=== PATIENT | male | born 1975 | race American Indian/Alaskan Native ===

== ENCOUNTER 2024-09-07 09:30 | Outpatient (AMB) | payer OTHER, SELFPAY ==
[2024-09-07 10:04] VITALS: BP 142/94; PULSE 114; O2SAT 98; BMI 38.7
--- NOTE | 2024-09-07 10:04 | A.OFFVIS_ITS ---
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, not intractable, without status migrainosus, R47.01 - Aphasia, R51.9 - Headache, unspecified, Z87.820 - Personal history of traumatic brain injury EEG electroencephalogram 09/13/24 G43.409 - Hemiplegic migraine, not intractable, without status migrainosus, R47.01 - Aphasia, R51.9 - Headache, unspecified, Z87.820 - Personal history of traumatic brain injury RT PSG in-lab sleep study 09/13/24 G43.409 - Hemiplegic migraine, not intrac table, without status migrainosus, G47.33 - Obstructive sleep apnea (adult) (pediatric), R47.01 - Aphasia, Z68.36 - Body mass index [BMI] 36.0-36.9, adult, Z87.820 - Personal history of traumatic brain injury Medications: New zavegepant 10 mg/actuation (Zavzpret) 10 mg intranasal ONCE PRN 6 ea 6RF sapna lucrecia headache 28 days eptinezumab-jj (Vyepti) administer over 30 mins 100 mg IV [id number] 1 mL 3RF 90 days G43.E19 - Chronic migraine with aura, intractable, without status migrainosus Coding Level of Care Code New Pt Level 5 (88080) Diagnoses Chronic migraine with aura, intractable, without status migrainosus G43.E19 Worsening headaches R51.9 Hemiplegic migraine G43.409 Aphasia R47.01 Comment 75 minutes spent directly with patient, in review of outside records, care coordination
--- OUTSIDE RECORDS SUMMARY | 2024-09-07 10:08 | XMS_ITS | Data Portability ---
Author Organization [place] - [facility], [facility]- Address [address] [address] Care Team Providers Care Operations Research Engineer Name Role Phone FAUSTO SMITH Primary Care Provider FAUSTO SMITH Referring Provider KRISTINE GROSS Referring Provider [phone] JAMES SANDOVAL Neurologist Assessment No assessment recorded. Plan of Treatment Reminders Order Date Submit Date Provider Last Modified By Organization Details Last Modified Time Details Appointments None recorde d. Lab None recorde d. Referral physica l therapi st referra l 2020 021 [facility], [address], [place], [address], 08:57:13 Procedures None recorde d. Surgeries None recorde d. Imaging MRI, knee, w/o contras t - assess pr meniscu s tear 2021 022 [email or web address] Not available 2 10:03:01 XR, knee 2020 021 [email or web address] In-Office Order, Internal Use Only DO Not Attach Compendium DO Not Attach Compendium, Do Not Delete/merge, [id number] 09:05:40 XR, hip, unilate ral 2020 021 [email or web address] In-Office Order, Internal Use Only DO Not Attach Compendium DO Not Attach Compendium, Do Not Delete/merge, [id number] 09:05:40 Medication Orders meloxic am 15 mg tablet 2020 021 ssigman [id number], [address] [place] [address], [place], [address], 10:47:41 Patient TargetsNo targets recorded. Patient Instructions Encounter Date Encounter Id Patient Instructions Last Modified By Organization Details Last Modified Time 11/20/2020 [id number] At this time, we have recommended that he complete his neurologic evaluation and workup. We will see him back in six weeks time. Hopefully, he can resume physical therapy once he gets Neurology clearance for continued strengthening. [email or web address] Not available 11/21/2020 07:32:47 01/01/2021 [id number] note to return t o work/school - Patient is to remain out of work until further notice. Next evaluation is 02/12/2021 [email or web address] Not available 01/02/2021 10:26:54 At this time, he will continue with formal physical therapy. He is going to remain out of work due to his concussion issues and then follow up with us in six weeks time for clinical check for return to work as well. Not available 01/03/2021 05:04:03 01/29/2021 [id number] X-ray of the hip demonstrates slight gun sock deformity but not showing significant osteoarthritic change. X-ray of the knee demonstrates reasonable joint space preservation without significant arthritis. We did proceed with a cortisone shot today to provide him some relief given the significance of his pain. We will see him in two weeks time. If he is not improving, we may consider further imaging either of the hip or knee depending on the quality of his symptoms. [email or web address] Not available 01/30/2021 09:04:43 02/28/2021 [id number] note to return t o work/school - Patient can return to work with no restrictions on 03/01/2021. [email or web address] Not available 02/28/2021 10:22:47 We are going to release him to work without restriction now for the right shoulder, activity as tolerated. I will see him in two months time for routine clinical check just to ensure he is doing well. Not available 03/03/2021 12:52:39 05/02/2021 [id number] X-rays were reviewed from January of 2021 which are unremarkable. At this point given his persistent pain and discomfort and failure to respond to conservative measures with significant mechanical issues, we are going to recommend an MRI of the knee. We will see him back after for clinical check. [email or web address] Not available 05/05/2021 07:23:29 Reason for Referral Physical Therapist Referral for Full thickness rotator cuff tear Referring Physician: Darvin Goodson, Orthopedic Surgery, Encounter Date: 11/20/2020 Results Created Date Observation Date Name Description Value Unit Range Abnormal Flag Note LastModifiedBy Organization Detail LastModifiedTime 01/30/20 XR, knee No observ ation record ed. doleary In-Office Order Internal Use Only DO Not Attach Compendium DO Not Attach Compendium, Do Not Delete/merge, [id number] 01/29/2021 09:28:53 01/30/20 XR, hip, unila teral No observ ation record ed. doleary In-Office Order Internal Use Only DO Not Attach Compendium DO Not Attach Compendium, Do Not Delete/merge, [id number] 01/29/2021 09:42:06 Result Notes None recorded. Problems Name Problem SNOMED Code Status Onset Date Resolution Date Notes Provider Name and Address Organization Details Recorded Time Osteoarthri tis of shoulder region [id number] Etienne salamanca [facility] 10:44:07 Disorder of joint of shoulder region 318743784 Active Sherri salamanca [facility] 10:44:06 Disorder of shoulder 455706119 Active Sherri salamanca [facility] 10:44:06 Glenoid labrum detachment [id number] Etienne salamanca [facility] 10:44:06 Displacemen t of interverteb ral disc without myelopathy [id number] Etienne salamanca [facility] 10:44:06 Localized, primary osteoarthri tis of the shoulder region [id number] Etienne salamanca [place] - [facility] 10:44:06 Neck pain 48356895 Active Sherri Killgren null, [facility] 10:44:06 Traumatic arthropathy of the shoulder region 324212052 Active Sherri Killgren null, [facility] 10:44:06 Shoulder joint pain 302432141 Active Sherri Killgren null, [facility] 10:44:06 Headache 35532671 Active Kush Valencia MD [address] [place] [address], [phone], [facility] 5 20:28:51 Rib pain 691228795 Active Sherri Killgren null, [facility] 10:44:06 Pain in thoracic spine 187860309 Active Sherri Killgren null, [facility] 10:44:07 Thoracic back pain 568893499 Active Sherri Killgren null, [facility] 10:44:06 Segmental and somatic dysfunction 029025650 Active Sherri Killgren null, [facility] 1 10:44:06 Rectal hemorrhage 51332725 Active Sherri Killgren null, [facility] 1 10:44:06 Depressive disorder 25567064 Active nadine napolitan o null, [facility] 0 16:20:14 Kidney stone 80510720 Active nadine napolitan o null, [facility] 0 16:20:14 Asthma 046510539 Active nadine napolitan o null, [facility] 0 16:20:14 Diverticuli tis 208540220 Active nadine napolitan o null, [facility] 0 16:20:15 Myocardial infarction 92705604 Active nadine napolitan o null, [facility] 0 16:20:15 Seizure 66584040 Active Sherri Killgren null, [facility] 1 10:44:06 Sleep apnea 54839646 Active nadine napolitan o null, [facility] 0 16:20:15 Migraine 43051744 Active nadine messinaolitan o null, [facility] 0 16:20:15 Tobacco user 426179133 Active Sherri Zuniga null, [facility] 1 10:44:06 Snoring 45664236 Active nadine messinaolitan o null, [facility] 0 16:20:15 Irritable bowel syndrome with diarrhea 402684551 Active nadine messinaolitan o null, [facility] 0 16:20:15 Anxiety 56386009 Active Sherri Reidgren null, [facility] 1 10:44:07 Abdominal pain 34334339 Active nadine bankstan o [facility], [facility] 0 16:20:15 Hearing loss 91302706 Active Sherri Reidgren null, [facility] 1 10:44:06 Pain of right shoulder joint [id number] 9100 Active Sherri Reidgren null, [facility] 1 10:44:06 Low back pain 685855088 Active 2017 Sherri Reidgren null, [facility] 1 10:44:06 Pain in left lower limb 422747441 Active 2018 Sherri Reidgren null, [facility] 1 10:44:06 Sciatica 20074910 Active 2018 Sherri Reidgren null, [facility] 1 10:44:06 Skin sensation disturbance 56720664 Active 2018 Sherri Reidgren null, [facility] 1 10:44:06 Interverteb ral disc prolapse 31307977 Active 2018 Sherri Reidgren null, [facility] 1 10:44:06 Degeneratio n of lumbosacral interverteb ral disc 30709072 Active 2018 Sherri Reidgren null, [facility] 10:44:06 Sprain of wrist 85089044 Active 2018 Sherri Zuniga [facility] 10:44:06 Problem Notes None recorded. Procedures Surgical History Date Name Laterality Status Provider Name and Address Organization Details Recorded Time (SAS) Knee Cortisone Injection completed Darvin Goodson MD [address] [place], [address], [facility] 01/29/2021 09:46:46 021 (SAS) Subacromial Injection completed Darvin Goodson MD [address] [place], [address], [facility] 03/18/2020 08:29:54 020 Injection L/S Facet Joint (2nd level-Bilateral) completed Kush Valencia MD [address] [place], [address] 11/23/2019 21:06:45 020 Injection L/S Transforaminal DONYA (2nd Level) completed Kush Valencia MD [address] [place], [address], [facility] 11/09/2019 19:49:45 020 (SAS) Subacromial Injection completed Sabina Jay NP [address] [place], [address], [facility] 06/26/2019 13:16:39 019 Injection L/S Transforaminal DONYA (2nd Level) completed Kush Valencia MD [address] [place], [address], [facility] 06/02/2018 17:34:12 019 Injection L/S Transforaminal DONYA (2nd Level) completed Kush Valencia MD [address] [place], [address], [facility] 05/19/2018 17:25:56 018 -Glenohumeral Injection-Fluoros copy completed Kush Valencia MD [address] [place], [address], [facility] 04/20/2017 21:02:30 018 (SAS) Subacromial Injection completed rodri vasquezoney [facility] 03/29/2017 08:23:26 017 -Glenohumeral Injection-Fluoros copy completed Kush Valencia MD [address] [place], [address] 04/07/2016 12:15:10 017 (SAS) Subacromial Injection completed Lucy Baljit [facility] 02/19/2016 09:24:23 015 -Injection C-Facet Joint (Two Levels) completed Kush Valencia MD [address] [place], [address] 09/11/2014 12:09:55 015 -Injection C-Facet Joint (Two Levels) completed Kush Valencia MD [address] [place], [address] 08/28/2014 12:19:52 009 Yvrose arthrs srg decompression completed Not Available [facility] 02/19/2011 02:37:16 Abdominal Surgery completed clemente forte [facility] 04/21/2017 11:32:27 Orthopaedic Surgery completed clemente forte [facility] 04/21/2017 11:32:56 Neck Surgery completed clemente forte [facility] 04/21/2017 11:33:19 Imaging Results None recorded. Procedure Notes None recorded. Medical Equipment None Reported. Allergies Allergen ID Allergen Name Allergen Category Reaction Reaction Severity Criticality Documentation Date Start Date Code Code System Note Provider Name and Address Organization Details Recorded Time 188078 codeine medicatio n Not available Not available Not available 07/19/2014 2670 RxNorm Sherri salamanca, [facility] 1 13:03:13 665465 Elavil medicatio n Not available Not available Not available 07/23/2014 68288 RxNorm Sherri salamanca [facility] 1 13:03:13 536879 tramadol medicatio n Not available Not available Not available 04/21/2017 33407 RxNorm Sherri Killgren null, [facility] 1 13:03:13 103339 gabapenti n medicatio n hallucina tions Not available Not available 01/31/2020 96383 RxNorm Sherri Killgren null, [facility] 1 13:03:13 330679 amitripty line medicatio n Not available Not available Not available 01/31/2020 704 RxNorm Sherri Killgren null, [facility] 1 13:03:13 410551 cyclobenz aprine hydrochlo ride medicatio n Not available Not available Not available 04/15/2020 05132 RxNorm Sherri Killgren null, [facility] 1 13:03:13 099525 maprotili ne medicatio n Not available Not available Not available 04/15/2020 6646 RxNorm Sherri Killgren null, [facility] 1 13:03:13 299124 SARS-COV- 2 (COVID-19 ) vaccine, vector - Ad26 medicatio n Not available Not available Not available 04/15/2020 40802 30 RxNorm Sherri Killgren null, [facility] 1 13:03:13 388163 metoclopr amide Not available Not available Not available Not available 08/28/2020 6915 RxNorm Sherri Killgren null, [facility] 1 10:43:55 830830 cyclobenz aprine medicatio n Not available Not available Not available 08/28/2020 49203 RxNorm Sherri Killgren null, [facility] 1 10:43:55 Medications Name Sig Start Date Stop Date Status Note LastModified by Organization Details LastModified Time verapamil ER (SR) 120 mg tablet,exte nded release TAKE 1 TABLET BY MOUTH EVERY DAY active Not Available Not Available No t Available celecoxib 200 mg capsule 04/21 completed Not Available Not Available Not Available cyclobenzap rine 10 mg tablet 04/21 completed Not Available Not Available Not Available prednisone 10 mg tablet take 4 tablets by mouth once daily for 3 days then take 3 tablets.. . (REFER TO PRESCRIPT ION NOTES). 04/21 completed Not Available Not Available Not Available doxycycline hyclate 100 mg capsule TAKE 1 CAPSULE BY MOUTH TWICE A DAY FOR 10 DAYS 10/08 completed Not Available Not Available Not Available atorvastati n 20 mg tablet TAKE 1 TABLET BY MOUTH EVERY DAY active Not Available Not Available No t Available Carafate 100 mg/mL oral suspension 04/21 completed Not Available Not Available Not Available verapamil 40 mg tablet 04/15 completed Not Available Not Available Not Available atorvastati n 10 mg tablet 03/18 completed Not Available Not Available Not Available azithromyci n 250 mg tablet TAKE 2 TABLETS BY MOUTH TODAY, THEN TAKE 1 TABLET DAILY FOR 4 DAYS 10/08 completed Not Available Not Available Not Available ibuprofen 800 mg tablet 04/21 completed Not Available Not Available Not Available Lidocaine Viscous 2 % mucosal solution 04/15 completed Not Available Not Available Not Available tizanidine 4 mg tablet 04/21 completed Not Available Not Available Not Available benzonatate 200 mg capsule active Not Available Not Available Not Available sumatriptan 100 mg tablet 04/21 completed Not Available Not Available Not Available hydrocodone 5 mg-acetamin ophen 325 mg tablet 1-2 tabs By mouth every 8 hours as needed Pain, Severe. Partial fill upon request. Refills: 0. active Not Available Not Available No t Available meloxicam 15 mg tablet Take 1 tablet every day by oral route with meals for 30 days. 2020 active Not Available Not Available Not Avai lable ondansetron HCl 4 mg tablet 04/21 completed Not Available Not Available Not Available famotidine 40 mg tablet 04/15 completed Not Available Not Available Not Available prednisone 20 mg tablet TAKE 2 TABLETS BY MOUTH DAILY FOR 3 DAYS WITH FOOD OR MILK active Not Available Not Available No t Available verapamil ER (SR) 180 mg tablet,exte nded release 04/15 completed Not Available Not Available Not Available sumatriptan 50 mg tablet 04/21 completed Not Available Not Available Not Available amlodipine 5 mg tablet TAKE 1 TABLET BY MOUTH EVERY DAY active Not Available Not Available No t Available divalproex 500 mg tablet,ricardo yed release 04/21 completed Not Available Not Available Not Available ciprofloxac in 500 mg tablet 04/15 completed Not Available Not Available Not Available sulfamethox azole 800 mg-trimetho prim 160 mg tablet active Not Available Not Available Not Available triamcinolo ne acetonide 0.1 % topical cream 04/15 completed Not Available Not Available Not Available zolmitripta n 5 mg tablet 5 mg by oral route. 10/08 completed Not Available Not Available Not Available butalbital- acetaminoph en-caffeine 50 mg-325 mg-40 mg tablet 04/21 completed Not Available Not Available Not Available ondansetron 8 mg disintegrat ing tablet 04/15 completed Not Available Not Available Not Available lamotrigine 25 mg tablet TAKE 1 TABLET BY MOUTH DAILY FOR 2 WEEKS THEN INCREASE TO 2 TABLETS DAILY active Not Available Not Available No t Available oxycodone-a cetaminophe n 5 mg-325 mg tablet 04/21 completed Not Available Not Available Not Available amoxicillin 875 mg tablet 04/15 completed Not Available Not Available Not Available famotidine 20 mg tablet take 1 tablet by mouth twice a day for 7 days 04/21 completed Not Available Not Available Not Available alosetron 1 mg tablet TAKE 1 TABLET BY MOUTH TWICE A DAY DIRECTED FOR 90 DAYS active Not Available Not Available No t Available tamsulosin 0.4 mg capsule 04/15 completed Not Available Not Available Not Available dicyclomine 20 mg tablet 04/21 completed Not Available Not Available Not Available meclizine 25 mg tablet TAKE 1 TABLET BY MOUTH 3 TIMES A DAY NEEDED FOR DIZZINESS active Not Available Not Available No t Available diazepam 2 mg tablet TK 2 T PO BID PRF MUSCLE SPASM 04/21 completed Not Available Not Available Not Available sulfacetami de sodium 10 % eye drops 04/21 completed Not Available Not Available Not Available benzonatate 100 mg capsule 04/15 completed Not Available Not Available Not Available doxycycline monohydrate 100 mg capsule 04/15 completed Not Available Not Available Not Available hydrocodone 7.5 mg-acetamin ophen 325 mg tablet 04/21 completed Not Available Not Available Not Available cephalexin 500 mg capsule 04/15 completed Not Available Not Available Not Available erythromyci n 5 mg/gram (0.5 %) eye ointment active Not Available Not Available Not Available dexamethaso ne 4 mg tablet 04/15 completed Not Available Not Available Not Available prednisone 50 mg tablet 06/21 completed Not Available Not Available Not Available losartan 25 mg tablet active Not Available Not Available No t Available indomethaci n 25 mg capsule TAKE 1 CAPSULE BY MOUTH 3X/DAY W/ FOOD X3 DAYS, 2 CAPS 3X/DAY FOR 3 DAYS, 3 CAPS 3X/DAY FOR 3 DAYS active Not Available Not Available No t Available gabapentin 300 mg capsule 04/21 completed Not Available Not Available Not Available omeprazole 20 mg capsule,del ayed release TAKE 1 CAPSULE BY MOUTH 30 MINUTES BEFORE MORNING MEAL active Not Available Not Available No t Available Banophen 25 mg capsule 06/21 completed Not Available Not Available Not Available budesonide 0.5 mg/2 mL suspension for nebulizatio n active Not Available Not Available Not Available diclofenac sodium 75 mg tablet,ricardo yed release take 1 tablet by mouth twice a day 04/21 completed Not Available Not Available Not Available folic acid 1 mg tablet TAKE 1 TABLET BY MOUTH EVERY DAY active Not Available Not Available No t Available zolpidem 5 mg tablet 04/21 completed Not Available Not Available Not Available ergocalcife rol (vitamin D2) 1,250 mcg (50,000 unit) capsule 04/21 completed Not Available Not Available Not Available azelastine 137 mcg (0.1 %) nasal spray USE 2 SPRAYS INTO EACH NOSTRIL TWICE A DAY active Not Available Not Available No t Available epinephrine 0.3 mg/0.3 mL injection, auto-inject or INJCT 0.3 MG IM ONCE,MAY REPEAT IF NECESSARY AND CALL 911 active Not Available Not Available No t Available ibuprofen 600 mg tablet 12/24 completed Not Available Not Available Not Available oxycodone-a cetaminophe n 7.5 mg-325 mg tablet 04/21 completed Not Available Not Available Not Available levofloxaci n 750 mg tablet TAKE 1 TABLET BY MOUTH EVERY 24 HOURS FOR 3 DAYS active Not Available Not Available No t Available methylpredn isolone 4 mg tablets in a dose pack TAKE 6 TABLETS ON DAY 1 DIRECTED ON PACKAGE AND DECREASE BY 1 TAB EACH DAY FOR A TOTAL OF 6 DAYS active Not Available Not Available No t Available hydrocodone 10 mg-chlorphe niramine 8 mg/5 mL oral susp extend.rel 12hr take 5 millilite r by mouth every 12 hours if needed for cough 04/21 completed Not Available Not Available Not Available albuterol sulfate HFA 90 mcg/actuati on aerosol inhaler INHALE 2 PUFFS 4 TIMES A DAY active Not Available Not Available No t Available hydromorpho ne 4 mg tablet 04/21 completed Not Available Not Available Not Available ondansetron 4 mg disintegrat ing tablet active Not Available Not Available N ot Available fluticasone propionate 50 mcg/actuati on nasal spray,suspe nsion 10/08 completed Not Available Not Available Not Available naratriptan 2.5 mg tablet 04/21 completed Not Available Not Available Not Available dicyclomine 10 mg capsule 04/21 completed Not Available Not Available Not Available loratadine 10 mg tablet 06/21 completed Not Available Not Available Not Available naproxen 500 mg tablet 04/21 completed Not Available Not Available Not Available metoclopram jose guadalupe 10 mg tablet 04/21 completed Not Available Not Available Not Available amoxicillin 875 mg-potassiu m clavulanate 125 mg tablet 10/08 completed Not Available Not Available Not Available Mucinex 600 mg tablet, extended release 04/15 completed Not Available Not Available Not Available azithromyci n 500 mg tablet 04/21 completed Not Available Not Available Not Available cyclobenzap rine 5 mg tablet 04/15 completed Not Available Not Available Not Available alosetron 0.5 mg tablet 04/21 completed Not Available Not Available Not Available Flovent HFA 110 mcg/actuati on aerosol inhaler 04/21 completed Not Available Not Available Not Available tizanidine 2 mg capsule Take 1 capsule 3 times a day by oral route as needed for 30 days. 04/21 completed Not Available Not Available Not Available Lipitor 10 mg. 03/18 completed Not Available Not Available Not Available Vitamin D 04/15 completed Not Available Not Available Not Available hydrocodone 5 mg-acetamin ophen 300 mg tablet 04/21 completed Not Available Not Available Not Available diclofenac 1 % topical gel 04/15 completed Not Available Not Available Not Available Abstral 04/21 completed Not Available Not Available Not Available Fluvirin 6473-5059 45 mcg (15 mcg x 3)/0.5 mL intramuscul ar suspension INJECT 0.5 ML INTRAMUSC ULARLY DIRECTED. 04/21 completed Not Available Not Available Not Available Aimovig Autoinjecto r 70 mg/mL subcutaneou s auto-inject or INJECT 1ML SUBCUTANE OUSLY ONCE A MONTH active Not Available Not Available No t Available Emgality Pen 120 mg/mL subcutaneou s pen injector active Not Available Not Available Not Available Aimovig Autoinjecto r 140 mg/mL subcutaneou s auto-inject or active Not Available Not Available Not Available Ubrelvy 100 mg tablet TAKE 1 TABLET BY MOUTH EVERY DAY WITH THE ONSET OF MIGRAINE DIRECTED 10/08 completed Not Available Not Available Not Available [facility] ing tablet PL[facility] 1 TABLET ON THE TONGUE AND ALLOW TO DISSOLVE NEEDED ORALLY EVERY OTHER DAY active Not Available Not Available No t Available Afluria Qd 2019- (36 mos up)(PF)60 mcg (15 mcg x4)/0.5 mL IM syringe 04/15 completed Not Available Not Available Not Available Vitals Date Recorded Body temperature Provider Name a nd Address Organization Details Last Updated DateTime 02/28/2021 97.8 [degF] Darvin Goodson MD [address] [place] [address], [phone], [place] - [facility] 02/28/2021 08:29:12 Date Recorded Body height Body mass index (BMI) Body weight Provider Name and Address Organization Details Last Updated DateTime 02/28/2021 177.8 cm 39.5 kg/m2 572819.9 g Sherri Zuniga [place] [facility] 02/28/2021 08:16:12 Date Recorded Body temperature Provider Name a nd Address Organization Details Last Updated DateTime 05/02/2021 97.3 [degF] thyda noting [place] [facility] 05/02/2021 08:00:22 Date Recorded Body height Body mass index (BMI) Body weight Provider Name and Address Organization Details Last Updated DateTime 05/02/2021 177.8 cm 39.5 kg/m2 032281.9 g Sherri Zuniga [place] [facility] 05/02/2021 07:47:16 Date Recorded Body temperature Provider Name a nd Address Organization Details Last Updated DateTime 11/20/2020 97.2 [degF] Nadine Valverde [place] [facility] 11/20/2020 14:47:51 Date Recorded Body height Body mass index (BMI) Body weight Provider Name and Address Organization Details Last Updated DateTime 11/20/2020 177.8 cm 39.5 kg/m2 904117.9 g Sherri Killgren [place] [facility] 11/20/2020 14:34:22 Date Recorded Body height Body mass index (BMI) Body weight Provider Name and Address Organization Details Last Updated DateTime 01/01/2021 177.8 cm 39.5 kg/m2 279360.9 g Sherri Jeanettegren [facility] 01/01/2021 08:57:59 Date Recorded Body temperature Provider Name a nd Address Organization Details Last Updated DateTime 01/29/2021 97.1 [degF] mima TOBAR [place] [facility] 01/29/2021 09:25:19 Date Recorded Body height Body mass index (BMI) Body weight Provider Name and Address Organization Details Last Updated DateTime 01/29/2021 177.8 cm 39.5 kg/m2 182948.9 g Sherri Killgren [facility] 01/29/2021 09:20:45 Social History Question Answer Notes LastModified by Organizat ion Details LastModified Time Tobacco Smoking Status Former Smoker clemente salamanca [place] [facility] 04/21/2017 11:31:24 Auto Related Injury? No Information not available 10/09/2020 Which Of Your Hands Is Dominant? Right Information not available 10/09/2020 Live Alone Or With Others? With Others Information not available 10/09/2020 Marital Status Informatio n not available 10/09/2020 What Was The Date Of Your Most Recent Tobacco Screening? 05/18/2018 Information not available 10/09/2020 How Many Children Do You Have? 0 Information not available 03/18/2020 If Injured, Is Litigation Ongoing? No Information not available 10/09/2020 What Is Your Relationship Status? Information not available 07/17/2020 How Much Tobacco Do You Smoke? 1 PPW Information not available 07/19/2014 Work Related Injury? No Information not available 10/09/2020 Sex: Unknown Functional Status Question Answer Note LastModified by Organizat ion Details LastModified Time Do you use any illicit or recreational drugs? No Information not available 02/06/2021 Do you or have you ever used any other forms of tobacco or nicotine? No Information not available 02/06/2021 What is your level of alcohol consumption? None Information not available 02/06/2021 Do you or have you ever used smokeless tobacco? Never used smokeless tobacco Information not available 10/09/2020 Are you currently employed? 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 Never used electronic cigarettes Information not available 10/09/2020 Mental Status None recorded. Family History Relationship Description Onset Age of this Age Resolved Age Notes LastModified by Organization Details LastModified Time Unspecified Relation Malignant neoplastic disease abhat Not available 2014 13:16:58 Unspecified Relation Diabetes mellitus abhat Not available 2014 13:16:58 Unspecified Relation Heart disease abhat Not available 2014 13:16:58 Unspecified Relation Hypertensive disorder abhat Not available 2014 13:16:58 Unspecified Relation Osteoarthrit is abhat Not available 2014 13:16:58 Unspecified Relation Rheumatoid arthritis abhat Not available 2014 13:16:58 Medical History Condition Response HIV or AIDS N Coronary Artery Disease Y Gout N Migraines Y Thyroid Problems N Lung Disease N Depression Y Blood Clots N Pacemaker N Anemia N Ulcers N Heart Attack ([place]) Y Anxiety Disorder N Diabetes N Bleeding Disorder N Arthritis Y Seizures/Epilepsy N Tuberculosis N Cancer N Stroke N Asthma Y Leg or Foot Ulcers N Peripheral Vascular Disease N GERD/Reflux N Hepatitis N Liver Disease N Heart Disease Y Rheumatoid Arthritis N Pulmonary Embolism N Hypertension Y Osteoporosis N Kidney Disease N Past Encounters Encounter ID Performer Location Encounter Start Date Encounter Closed Date Diagnosis/Indication Diagnosis SNOMED-CT Code Diagnosis ICD10 Code Diagnosis Note [id number] Darvin Goodson MD [address] [address] 12/14/2008 09:47:30 12/14/2008 10:18:35 [id number] Darvin Goodson MD [address] [address] 01/18/2009 09:14:39 01/18/2009 10:41:26 [id number] Darvin Goodson MD [address] [address] 01/28/2009 09:45:24 01/28/2009 10:20:22 [id number] Darvin Goodson MD [address] [address] 02/06/2009 12:43:41 02/06/2009 12:43:49 [id number] Sabina Jay NP [address] [address] 02/05/2009 00:00:00 02/18/2011 03:30:43 [id number] Darvin Goodson MD [address] [address] 02/12/2009 09:49:50 02/12/2009 10:02:53 [id number] Darvin Goodson MD [address] [address] 03/04/2009 09:06:28 03/04/2009 09:34:14 [id number] Darvin Goodson MD [address] [address] 04/15/2009 08:55:37 04/15/2009 09:21:31 [id number] Darvin Goodson MD [address] [address] 05/20/2009 08:29:03 05/20/2009 08:43:26 [id number] Darvin Goodson MD [address] [address] 07/01/2009 08:18:02 07/01/2009 08:27:48 [id number] Darvin Goodson MD [address] [address] 08/05/2009 08:16:17 08/05/2009 08:43:28 [id number] [address] 09/09/2009 09:24:02 09/09/2009 10:08:01 [id number] Darvin Goodson MD [facility] [address] [place] [address] 09/09/2009 08:37:49 09/09/2009 08:51:20 [id number] Darvin Goodson MD [facility] [address] [place] [address] 09/27/2009 08:27:16 09/27/2009 08:53:17 [id number] MD CHARMAINE Pimentel [address] [place] [address] 07/19/2014 15:06:50 07/19/2014 16:04:44 Neck pain 43282264 Headache 94685613 Rib pain 570829702 Pain in th oracic spine 651401052 [id number] MD CHARMAINE Pimentel [address] [place] [address] 08/15/2014 15:33:30 08/15/2014 15:48:58 Neck pain 84018389 Headache 91731237 [id number] MD CHARMAINE Pimentel [address] [place] [address] 08/27/2014 09:04:05 08/27/2014 10:08:25 Headache 73210192 Neck pain 45555433 [id number] MD CHARMAINE Pimentel [address] [place] [address] 08/28/2014 11:31:40 08/28/2014 12:23:33 [id number] MD CHARMAINE Pimentel [address] [place] [address] 09/11/2014 11:58:03 09/11/2014 12:15:39 [id number] MD CHARMAINE Pimentel [address] [place] [address] 11/02/2014 13:48:54 11/02/2014 14:15:41 Pain in thoracic spine 999191992 Headache 74978087 Neck pain 99236803 [id number] MD CHARMAINE Pimentel [address] [place] [address] 11/22/2014 15:54:38 11/22/2014 16:22:09 Thoracic back pain 965009287 M54.6 Segmental and somatic dysfunction 077056976 M99.08 [id number] MD CHARMAINE Andrea [address] [place] [address] 11/20/2015 12:49:46 11/20/2015 13:29:59 Pain of shoulder region 68613051 M25.511 [id number] MD CHARMAINE Andrea [address] [place] [address] 12/04/2015 14:45:34 12/04/2015 15:10:34 Partial thickness rotator cuff tear 423216819 M75.101 [id number] MD CHARMAINE Andrea [address] [place] [address] 01/06/2016 14:46:39 01/06/2016 15:06:56 Partial thickness rotator cuff tear 054181648 M75.101 Pain of oulder region 92177689 M25.511 [id number] MD CHARMAINE Andrea [address] [place] [address] 02/19/2016 08:51:10 02/19/2016 09:44:35 Partial thickness rotator cuff tear 475056285 M75.101 [id number] MD CHARMAINE Andrea [address] [place] [address] 04/01/2016 09:05:03 04/01/2016 09:19:14 Partial thickness rotator cuff tear 256126032 M75.101 Glenoid labrum tear 2023 62075 S43.431A [id number] MD CHARMAINE Pimentel [address] [place] [address] 04/07/2016 10:57:35 04/07/2016 11:41:01 Shoulder joint pain 801229841 M25.519 [id number] MD CHARMAINE Andrea. Rubinafor d [address] [place] [address] 05/06/2016 08:06:30 05/06/2016 08:21:02 [id number] MD CHARMAINE Andrea [address] [place] [address] 06/17/2016 07:57:43 06/17/2016 08:17:32 Disorder of shoulder 238421139 M25.811 Shoulder joint pain 2679 20675 M25.519 [id number] [facility] [address] [place] [address] 07/29/2016 07:41:00 07/29/2016 08:11:19 Adhesive capsulitis of shoulder 819668653 M75.01 [id number] [facility] [address] [place] [address] 08/10/2016 08:12:55 08/10/2016 08:32:46 [id number] MD [facility] [address] [place] [address] 09/09/2016 09:17:49 09/09/2016 09:36:48 Rib pain 085035900 R07.81 [id number] [facility] [address] [place] [address] 10/12/2016 09:00:44 10/12/2016 09:10:34 Adhesive capsulitis of shoulder 751231856 M75.01 [id number] MD CHARMAINE Andrea d [address] [place] [address] 11/16/2016 07:39:03 11/16/2016 08:02:30 [id number] MD CHARMAINE Andrea d [address] [place] [address] 12/28/2016 08:11:24 12/28/2016 08:51:36 Partial thickness rotator cuff tear 169152956 M75.101 [id number] MD CHARMAINE Pimentel [address] [place] [address] 03/17/2017 08:28:46 03/17/2017 08:59:44 Low back pain 101795809 M54.5 Pain in th oracic spine 750698114 M54.6 [id number] MD CHARMAINE Pimentel [address] [place] [address] 03/24/2017 12:47:23 03/24/2017 13:15:30 Pain in thoracic spine 960251681 M54.6 Low back pain 534767037 M54.5 [id number] MD CHARMAINE Andrea [address] [place] [address] 03/29/2017 07:58:41 03/29/2017 08:17:21 Pain of shoulder region 35537918 M25.511 [id number] MD CHARMAINE Pimentel [address] [place] [address] 04/20/2017 14:56:39 04/20/2017 15:32:30 Pain of shoulder region 64490411 M25.511 [id number] MD CHARMAINE Andrea [address] [place] [address] 12/15/2017 13:16:12 12/15/2017 14:06:00 Knee pain 30031672 M25.569 M25.562 [id number] MD CHARMAINE Andrea [address] [place] [address] 12/22/2017 09:40:20 12/22/2017 09:55:43 Knee pain 48078634 M25.562 [id number] MD CHARMAINE Andrea [address] [place] [address] 01/19/2018 09:32:59 01/19/2018 09:49:43 [id number] MD CHARMAINE Andrea [address] [place] [address] 03/16/2018 08:41:03 03/16/2018 08:54:59 [id number] MD CHARMAINE Pimentel [address] [place] [address] 05/18/2018 14:12:54 05/18/2018 14:44:55 Low back pain 918096442 M54.5 Pain in le ft lower limb 949428851 M79.605 Sciatica 40086240 M54.31 Skin sensa tion disturbance 01278328 R20.8 Interverte bral disc prolapse 06240158 M51.27 Degenerati on of lumbosacral intervertebral disc 00087376 M51.37 [id number] MD CHARMAINE Pimentel [address] [place] [address] 05/19/2018 15:53:56 05/19/2018 16:43:47 Displacement of lumbar intervertebral disc without myelopathy 96405261 M51.26 [id number] MD CHARMAINE Pimentel [address] [place] [address] 06/02/2018 15:49:39 06/02/2018 16:20:54 Displacement of lumbar intervertebral disc without myelopathy 98060372 M51.26 [id number] MD CHARMAINE Werner [address] [place] [address] 12/26/2018 13:26:20 12/26/2018 14:12:06 Sprain of wrist 83914084 S63.592A [id number] MD CHARMAINE Werner [address] [place] [address] 01/09/2019 12:44:53 01/09/2019 13:15:47 Sprain of wrist 13443309 S63.592A [id number] MD CHARMAINE Andrea [address] [place] [address] 06/07/2019 11:13:13 06/07/2019 15:12:11 Pain of shoulder region 63972189 M25.759 [id number] MD CHARMAINE Andrea [address] [place] [address] 06/21/2019 10:39:24 06/21/2019 14:32:55 [id number] MD CHARMAINE Andrea [address] [place] [address] 06/26/2019 12:46:09 06/26/2019 13:30:41 Pain of right shoulder joint 3344082285 5388433 M25.511 Neck pain 32359270 M54.2 [id number] MD CHARMAINE Andrea [address] [place] [address] 07/12/2019 07:49:15 07/12/2019 09:01:49 Neck pain 51063092 M54.2 [id number] MD CHARMAINE Andrea [address] [place] [address] 07/26/2019 09:06:54 07/26/2019 14:18:10 Neck pain 37855409 M54.2 [id number] MD CHARMAINE Pimentel [address] [place] [address] 10/30/2019 15:45:01 10/31/2019 11:28:18 [id number] MD CHARMAINE Pimentel [address] [place] [address] 11/09/2019 15:51:26 11/09/2019 16:25:48 Displacement of lumbar intervertebral disc without myelopathy 69969026 M51.26 [id number] MD CHARMAINE Pimentel [address] [place] [address] 11/23/2019 16:06:28 11/23/2019 16:33:14 Lumbosacral spondylosis without myelopathy 91202783 M47.341 [id number] MD CHARMAINE Pimentel [address] [place] [address] 12/25/2019 15:43:50 12/25/2019 16:17:53 Osteoarthritis of lumbar spinal facet joint 042518467 M47.817 Low back pain 839914769 M54.5 Pain in th oracic spine 549598736 M54.17 [id number] MD CHARMAINE Pimentel [address] [place] [address] 01/31/2020 16:16:52 02/02/2020 14:32:53 Low back pain 936126702 M54.5 Osteoarthr itis of lumbar spinal facet joint 357468459 M47.817 Lumbosacra l radiculopathy 6910942 M54.17 [id number] MD [facility] [address] [place] [address] 03/13/2020 08:50:47 03/13/2020 09:12:01 Pain of right shoulder joint 2175352391 5722231 M25.831 [id number] MD [facility] [address] [place] [address] 03/18/2020 08:18:52 03/18/2020 08:42:38 Partial thickness rotator cuff tear 060662296 M75.032 [id number] MD CHARMAINE Andrea Kishan beebe [address] [place] [address] 04/15/2020 07:57:24 04/15/2020 08:18:28 Partial thickness rotator cuff tear 378718353 M75.550 [id number] MD CHARMAINE Andrea Kishan beebe [address] [place] [address] 05/24/2020 10:42:24 05/24/2020 10:57:06 Partial thickness rotator cuff tear 077056153 M75.605 [id number] MD [facility] [address] [place] [address] 06/21/2020 10:18:22 06/21/2020 10:34:18 Partial thickness rotator cuff tear 574678570 M75.056 [id number] MD CHARMAINE Andrea [address] [place] [address] 07/17/2020 10:38:47 07/17/2020 11:13:37 Partial thickness rotator cuff tear 964203127 M75.490 [id number] MD CHARMAINE Andrea d [address] [place] [address] 08/28/2020 10:42:04 08/28/2020 11:05:40 Full thickness rotator cuff tear 891309731 M75.461 [id number] MD CHARMAINE Andrea [address] [place] [address] 10/09/2020 13:00:44 10/09/2020 13:18:41 Full thickness rotator cuff tear 081448907 M75.059 [id number] MD CHARMAINE Anrdea [address] [place] [address] 11/20/2020 14:32:45 11/20/2020 15:13:28 Full thickness rotator cuff tear 681099670 M75.079 [id number] MD CHARMAINE Andrea [address] [place] [address] 01/01/2021 08:56:39 01/01/2021 09:28:55 Full thickness rotator cuff tear 585496569 M75.780 [id number] MD CHARMAINE Andrea Kishan beebe [address] [place] [address] 01/29/2021 09:04:46 01/29/2021 09:56:34 Pain of left knee joint 8043224327 52699 M25.045 [id number] MD CHARMAINE Andrea [address] [place] [address] 02/28/2021 08:07:54 02/28/2021 08:37:54 Full thickness rotator cuff tear 455365395 M75.608 [id number] MD CHARMAINE Andrea [address] [place] [address] 05/02/2021 07:44:02 05/02/2021 08:12:39 Pain of left knee joint 6078863168 63775 M25.562 Health Concerns Section Related Observation LastModified by Organization Detai ls LastModified Time None Recorded Concern Status LastModified by Organization Details LastModified Time None Recorded Advance Directives Directive None Recorded Payers Insurance Date Sequence Insurance Name Policy Number Policy Cat Covered Member ID Cat Member ID Guarantor Name 09/30/2013 1 [facility] [employer] PLAN (HMO) [id number] Joanne Kirkland [id number] Joanne Kirkland 06/18/2014 1 [facility] (PPO) Joanne Kirkland [id number] Joanne Kirkland 02/19/2016 1 [place] [id number] Joanne Kirkland [id number] Joanne Kirkland 09/23/2021 [facility] Saturnino Kirkland 09/23/2021 2 [place] [id number] Saturnino Kirkland [id number] Joanne Kirkland 09/26/2021 1 [employer] [id number] Saturnino Kirkland [id number] Joanne Kirkland Notes Date Note Type Note Provider Name and Address Organization Details Recorded Time 11/20/2020 text/html SAS ShoulderRepo rted by Patient SAS Shoulder FollowupReported by Patient We are seeing Saturnino today who presents in follow-up for his shoulder. He has had a concussion after a work related injury. He is under the monitoring of a neurologist at this point. He has been unable to continue with therapy at the moment. Darvin Goodson MD [address] [place], [address], [facility] 11/22/2020 12:40:23 01/01/2021 text/html SAS ShoulderRepo rted by Patient SAS Shoulder FollowupReported by Patient We are seeing Saturnino today who presents in follow-up for his rotator cuff repair and in addition for his concussion which has kept him out of work. He is followed by Neurology for that as well. He has finally gone back to physical therapy. Darvin Goodson MD [address] [place], [address], [facility] 01/06/2021 10:47:58 01/29/2021 text/html SAS Knee FollowupReported by Patient SAS KneeReported by Patient We are seeing Saturnino today. He presents with atypical knee pain which has been present now for about three weeks. Unsure of any one specific traumatic event or injury. Has pain radiating into the groin and using a cane for ambulation. Again, no specific traumatic event that he can recall. Darvin Goodson MD [address] [place], [address], [facility] 01/31/2021 13:04:31 02/28/2021 text/html SAS ShoulderRepo rted by Patient SAS Shoulder FollowupReported by Patient We are seeing Saturnino today who presents in follow-up for his shoulder. He had a cortisone shot at last visit for mechanical pain. He has done exceptionally well with that. Feels he is more or less back to normal. His right shoulder still gives him occasional intermittent pain and weakness, but he is functioning at a higher level with regards to that. He wants to resume work. Darvin Goodson MD [address] [place], [address], [facility] 03/06/2021 08:18:04 05/02/2021 text/html SAS ShoulderRepo rted by Patient CHRISTIAN Shoulder FollowupReported by Patient We are seeing Saturnino today in follow-up for his left knee. He is having more severe pain and discomfort. He had a cortisone shot previously which only gave him temporary relief. If anything, his symptoms are worse. It is a lot of kneeling at work but no one specific traumatic event or injury. Denies hip or back pain. His pain is localized into the knee. Darvin Goodson MD [address] [place], [address], [facility] 05/05/2021 16:01:38
--- OUTSIDE RECORDS SUMMARY | 2024-09-07 10:08 | XMS_ITS | Encounter Summary ---
Author Organization [facility] Address [address] [facility] [address] [place] [address] Care Team Providers Care Refinery Operator Helper Crude Unit Name Role Phone Judi Simms MD Primary Care Provider [phone] Judi Simms MD Unavailable [phone] Reason for Visit * Reason Comments Med Refill Encounter Details Date Type Department Care Team (Late st Contact Info) Description 02/08/[address] [address] Judi Simms MD [address] [place] [address] Mild persistent asthma without complication (Primary Dx); Migraine with aura and without status migrainosus, not intractable Social History Tobacco Use Types Packs/Day Years Used Date Smoking Tobacco: Former Cigarettes Q uit: 2002 Smokeless Tobacco: Never Alcohol Use Standard Drinks/Week Comments Not Currently 0 (1 standard drink = 0.6 oz pure alcohol) drinks 2 days/year to commemorate anniversaries Sex and Gender Information Value Date Recorded Sex Assigned at Male 12/26/2021 5:43 PM EST Legal Sex Male 11:02 AM EDT Gender Identity Male 08/25/2022 2:24 PM EDT Sexual Orientation Straight 08/25/2022 2: 24 PM EDT documented as of this encounter Plan of Treatment Upcoming Encounters Date Type Department Care Team (Late st Contact Info) Description 08/24/2025 1:45 PM EDT Office Visit [place] [address] [address] [facility] [address] [place] [address] Judi Simms MD [address] [address] documented as of this encounter Visit Diagnoses Diagnosis Mild persistent asthma without complication (Multi-HCC)- Primary Migraine with aura and without status migrainosus, not intractable documented in this encounter Care Teams Refinery Operator Helper Crude Unit Relationship Specialty Start Date End Date Judi Simms MD PCP - General 03/21/21 Judi Simms MD 03/21/21 documented as of this encounter
== END 2024-09-07 11:53 | disposition home or self-care (01) ==
LOC: HO.HSMS 09:30
PROVIDERS: Visit Provider Nurse Practitioner Family
DX: G43.E19 Chronic migraine with aura, intractable, without status migrainosus (principal); G43.409 Hemiplegic migraine, not intractable, without status migrainosus; R47.01 Aphasia
CPT/HCPCS: 99205

== ENCOUNTER → 2024-10-13 19:30 | Outpatient (REF) | payer OTHER, SELFPAY | LOC: HO.SL 19:30 | PROVIDERS: Visit Provider Nurse Practitioner Family | DX: Z13.89 Encounter for screening for other disorder (principal) ==

== ENCOUNTER → 2024-10-13 19:52 | Outpatient (BNV) | payer OTHER, SELFPAY | PROVIDERS: Visit Provider Psychiatry & Neurology Neurology | DX: G47.33 Obstructive sleep apnea (adult) (pediatric) (principal); G47.61 Periodic limb movement disorder | CPT/HCPCS: 95810 ==

== ENCOUNTER 2024-10-22 14:44 | Outpatient (REF) | payer OTHER, SELFPAY ==
--- NOTE | ~2024-10-22 | MR_ITS ---
EXAMINATION: MR BRAIN WITHOUT AND WITH CONTRAST CLINICAL INFORMATION: Headache COMPARISON: None available. TECHNIQUE: Multiplanar, multisequence MRI of the brain was obtained before and after the intravenous administration of 10.0 mL gadolinium based contrast without reported immediate complications.. FINDINGS: No restricted diffusion. No acute intracranial hemorrhage, mass effect, midline shift, hydrocephalus or herniation. Kirk-white matter differentiation is normal. No abnormal enhancement within the intra-axial or extra-axial compartment of the cranium. Posterior cranial fossa contents demonstrated no signal abnormality or masses. Flow-void signal within the main cerebral vessels is normal. Sellar/suprasellar region is normal. Craniocervical junction demonstrates normal position of the cerebellar tonsils. Small retention cyst, left maxillary sinus. Mild mucosal thickening in the ethmoid cells. MR/MR head/brain wo/w con IMPRESSION: No acute or structural brain abnormality. No enhancing lesion. Electronically signed by: Timur Barksdale MD 10/23/2024 08:45 AM EDT
--- NOTE | ~2024-10-22 | MR_ITS ---
EXAMINATION: MR VENOGRAM BRAIN WITH CONTRAST CLINICAL INFORMATION: Headache COMPARISON: None available. TECHNIQUE: MRV of the brain was obtained using routine sequences with contrast. Intravenous contrast: Gadolinium based 10.0 mL. No reported immediate complications. FINDINGS: Superior sagittal sinus, internal cerebral veins, vein of Randolph, straight sinus, torcula, transverse and sigmoid venous sinuses and internal jugular bulb demonstrated normal patency without intraluminal filling defects. MR/MR venography head wo/w con IMPRESSION: No main cerebral venous sinus thrombosis. Normal MRV brain. Electronically signed by: Timur Barksdale MD 10/23/2024 08:40 AM EDT
--- NOTE | ~2024-10-22 | MR_ITS ---
EXAMINATION: MR ANGIOGRAPHY BRAIN WITHOUT CONTRAST CLINICAL INFORMATION: Headache COMPARISON: None available. TECHNIQUE: Axial 3-D [id number]. Maximum intensity projections iqugmiut of [place]. FINDINGS: Anterior cerebral circulation: ICAs: No flow signal gap or abrupt cut off. ICA terminus demonstrated no flow signal irregularity. MCA's: No flow signal gap or abrupt cut off. Bifurcation/trifurcation demonstrated no flow signal irregularity. ACAs: No flow signal gap or abrupt cut off. Anterior communicating artery flow signal is present without flow signal irregularity. Ophthalmic arteries flow signal is present without gross irregularity. Posterior communicating arteries flow signal is faint without gross abnormality. Posterior cerebral circulation: V3/V4 segments demonstrated no flow signal gap or intimal flap. Right vertebral artery is dominant. Posterior inferior cerebellar arteries flow signal is normal without gross irregularity. Basilar artery flow signal is normal without intraluminal filling defects or flow signal gap. Superior cerebellar arteries flow signal is present without gross abnormality. film recordist: No flow signal gap or abrupt cut off. MR/MR angio head wo con IMPRESSION: No main cerebral artery occlusion or embolus or gross aneurysm. Electronically signed by: Timur Barksdale MD 10/23/2024 08:36 AM EDT
--- OUTSIDE RECORDS SUMMARY | 2024-10-22 14:50 | XMS_ITS | Encounter Summary ---
Author Organization [facility] Address [address] [facility] [address] [place] [address] Care Team Providers Care Marketing Professor Name Role Phone Judi Simms MD Primary Care Provider [phone] Judi Simms MD Unavailable [phone] Reason for Visit * Reason Onset Date Comments Fax follow-up 09/28/2024 Encounter Details Date Type Department Care Team (Late st Contact Info) Description 09/28/[address] [facility] - [address] [address] Jenna Macario, JUAN MANUEL Fax follow-up Social History Tobacco Use Types Packs/Day Years Used Date Smoking Tobacco: Former Cigarettes Q uit: 2002 Smokeless Tobacco: Never Alcohol Use Standard Drinks/Week Comments Not Currently 0 (1 standard drink = 0.6 oz pure alcohol) drinks 2 days/year to commemorate anniversaries PHQ-2 Answer Date Recorded Patient Health Questionnaire-2 Score 0 08/22/2024 Sex and Gender Information Value Date Recorded Sex Assigned at Male 12/26/2021 5:43 PM EST Legal Sex Male 11:02 AM EDT Gender Identity Male 08/25/2022 2:24 PM EDT Sexual Orientation Straight 08/25/2022 2: 24 PM EDT documented as of this encounter Miscellaneous Notes * Telephone Encounter - Jean Cabrales - 09/28/2024 8:56 AM EDT September 28, 2024 8:27AM Pt LVM for Jenna informing that remaining answers have been completed in thefax received yesterday and are being sent back to the recipient. Pt requests if any questions left be directed today to him or his spouse, if unavailable can be contacted tomorrow. Requested Call back no: [phone] or [phone] Thank you. documented in this encounter Plan of Treatment Upcoming Encounters Date Type Department Care Team (Late st Contact Info) Description 08/24/2025 1:45 PM EDT Office Visit [address] [address] Judi Simms MD [address] [place] [address] documented as of this encounter Visit Diagnoses Not on filedocumented in this encounter Additional Health Concerns Assessment Noted Time PHQ-9 Depression Total Score: 0 08/23/19 25 1:17 PM EDT documented as of this encounter Care Teams Marketing Professor Relationship Specialty Start Date End Date Judi Simms MD PCP - General 03/21/21 Judi Simms MD 03/21/21 documented as of this encounter
--- OUTSIDE RECORDS SUMMARY | 2024-10-22 14:50 | XMS_ITS | Encounter Summary ---
Author Organization [facility] Address [address] [facility] [address] [place] [address] Care Team Providers Care Bell Cleaner Name Role Phone Judi Simms MD Primary Care Provider [phone] Judi Simms MD Unavailable [phone] Reason for Visit * Reason Comments Med Refill Encounter Details Date Type Department Care Team (Late st Contact Info) Description 02/08/[address] [address] Judi Simms MD [address] [place] [phone] Mild persistent asthma without complication (Primary [...] Description 08/24/2025 1:45 PM EDT Office Visit [place] [id number] [address] [facility] [address] [place] [phone] Judi Simms MD [address] [phone] documented as of this encounter Visit Diagnoses Diagnosis Mild persistent asthma without complication (Multi-HCC)- Primary Migraine with aura and without status migrainosus, not intractable documented in this encounter Care Teams Bell Cleaner Relationship Specialty Start Date End Date Judi Simms MD PCP - General 03/21/21 Judi Simms MD 03/21/21 documented as of this encounter
--- OUTSIDE RECORDS SUMMARY | 2024-10-22 14:50 | XMS_ITS | Clinical Summary ---
Author Organization [facility] Address [address] [facility] [address] [place] [address] Care Team Providers Care Box Loader Name Role Phone Judi Simms MD Primary Care Provider [phone] Judi Simms MD Unavailable [phone] Allergies Active Allergy Reactions Criticality Noted Date Comments Amitriptyline Hallucinations High 05/27/2021 Other reaction(s): hallucinations, SI, HI Amlodipine Itching 08/25/2021 Chicken Meat Extract 05/27/2021 Chlorpromazine 05/27/2021 Codeine Hallucinations,Nause a Only Medium 05/27/2021 Covid-19 (Sars-Cov-2) Vaccine, Shauna Cell Anaphylaxis High 05/27/2021 Cyclobenzaprine Shortness of breath,Itching High 05/27/2021 Other reaction(s): itchy all over itchy itchy Gabapentin Hallucinations High 05/27/2021 Other reaction(s): Hallucinating Merlin 05/27/2021 Metoclopramide Itching,Hallucinatio ns Low 05/27/2021 agitation agitation Other Diarrhea,Other 05/28/2021 Lobster (reactions: diarrhea/projectile vomiting) Oxycodone-Acetaminophen Dizziness 05/27/2021 Other reaction(s): difficulty breathing Phenylpiperazine Antidepressant 05/27/2021 Pork Derived (Porcine) 05/27/2021 Poultry High 05/27/2021 Other reaction(s): Abdominal Pain, airway will close up chicken and turkey Prednisone Other 05/27/2021 Pt reports medication causes him to become suicidal/homicidal Pseudoephedrine Hcl 05/27/2021 Sumatriptan 05/27/2021 Tetracyclic Antidepressants 05/27/2021 Tramadol 05/27/2021 Other reaction(s): homicidal, suricidal feellings, Vomiting Ubrogepant Itching 05/27/2021 Medications cholecalciferol, vitamin D3, (Vitamin D-3) 25 MCG (1000 UT) tablet Take 25 mcg by mouth in the morning. Active multivitamin tablet Take 1 tablet by mouth in the morning. Active ALBUTEROL INHL Inhale. Activ e budesonide (Rhinocort AQ) 32 mcg/actuation nasal spray Administer 1 spray into each nostril in the morning. Active albuterol (Ventolin HFA) 90 mcg/actuation inhalerIndications :Mild persistent asthma without complication (Multi-HCC) Inhale 2 puffs every 4 (four) hours if needed for wheezing or shortness of breath. 8 g 5 10/01/19 24 Active semaglutide (Ozempic) 1 mg/dose (4 mg/3 mL) pen-injectorIndica tions:Type 2 diabetes mellitus without complication, without long-term current use of insulin (Multi-HCC) INJECT 1 MG UNDER THE SKIN 1 (ONE) TIME PER WEEK. 12 mL 3 01/03/20 24 Active losartan (Cozaar) 50 mg tabletIndications: Primary hypertension TAKE 1 TABLET BY MOUTH EVERY DAY 90 tablet 3 03/03/19 25 Active EPINEPHrine (Epipen) 0.3 mg/0.3 mL auto-injectorIndic ations:Allergy, initial encounter Inject entire contents of epinephrine auto-injector into thigh. Call 911 after use. 1 each 03/13/19 25 Active metFORMIN (Glucophage) 500 mg tabletIndications: Type 2 diabetes mellitus without complication, without long-term current use of insulin (Multi-HCC) TAKE 1 TABLET BY MOUTH TWICE A DAY WITH MEALS 180 tablet 3 04/12/19 25 Active atorvastatin (Lipitor) 20 mg tabletIndications: Hyperlipidemia, unspecified hyperlipidemia type TAKE 1 TABLET BY MOUTH EVERY DAY 90 tablet 3 04/12/19 25 Active folic acid (Folvite) 1 mg tabletIndications: Migraine with aura and without status migrainosus, not intractable TAKE 1 TABLET (1,000 MCG) BY MOUTH ONCE DAILY 90 tablet 06/30/19 25 Active Active Problems Problem Noted Date Diagnosed Date Primary hypertension 08/18/2023 Type 2 diabetes mellitus wit hout complication, without long-term current use of insulin (Multi-HCC) 08/25/2022 Assessment & Plan (08/25/2022 1:29 PM EDT): Worsening. On Metformin. HgA1C - 8.2%. Up from 7.5 %. Will add Ozempic now - SE's, dose and purpose of medication - discussed. The Pt agrees with the plan. Will follow up. Migraine with aura and witho ut status migrainosus, not intractable 08/25/2022 Assessment & Plan (08/25/2022 1:32 PM EDT): Stable for now. He sees Dr. Goldstein - neurology. He is on Robaxin and verapamil now. Continue current management we will follow-up HLD (hyperlipidemia) 08/25/2022 Assessment & Plan (08/25/2022 1:33 PM EDT): Stable on statin. Recent blood work reviewed and discussed with the patient. Continue current management we will follow-up Mild persistent asthma (Multi-HCC) 08/25/2022 Assessment & Plan (08/25/2022 1:34 PM EDT): Stable on ProAir as needed. No recent asthma exacerbation or attacks. Continue current management we will follow-up Morbid obesity 08/25/2022 Assessment & Plan (08/25/2022 1:34 PM EDT): Worsening lately due to inactivity. He will start a new job tomorrow and he will start diet and exercise. We will start Ozempic now for his diabetes and weight control. We will follow-up BMI 39.0-39.9,adult 08/25/2022 Assessment & Plan (08/25/2022 1:35 PM EDT): We will start diet and exercise as well as Ozempic, we will follow-up Diabetes (Multi-HCC) 05/26/2022 09/21/2022 Other acute appendicitis 05/29/2021 PONV (postoperative nausea and vomiting) 022 Obstructive sleep apnea syndrome 05/28/2021 Acute appendicitis 05/27/2021 Appendicitis, acute 05/27/2021 Encounters Date Type Department Care Team Description 09/28/[address] [phone] Jenna Macario, JUAN MANUEL Fax follow-up 08/31/2024 Orders Only [address] [place] [phone] Renate Alfonso MA Back pain, unspecified back location, unspecified back pain laterality, unspecified chronicity; Knee pain, unspecified chronicity, unspecified laterality 08/31/2024 Orders Only [address] [place] [address] Renate Alfonso MA Back pain, unspecified back location, unspecified back pain laterality, unspecified chronicity; Knee pain, unspecified chronicity, unspecified laterality 08/22/2024 1:00 PM EDT Office Visit [address] [place] [address] Judi Simms MD Annual physical exam (Primary Dx); Type 2 diabetes mellitus without complication, without long-term current use of insulin (Multi-HCC); Morbid obesity (CMS-HCC); BMI 39.0-39.9,adult; Mild persistent asthma without complication (Multi-HCC); Hyperlipidemia, unspecified hyperlipidemia type ; Migraine with aura and without status migrainosus, not intractable ; Primary hypertension from Last 3 Months Immunizations Immunization Administration Dates Next Due COVID-19 Pfizer Monovalent 04/05/2020 Influenza, injectable, MDCK, preservative free, quadrivalent 12/16/2022 Influenza, injectable, quadr ivalent, preservative free 11/18/2019 Influenza, seasonal, injectable 11/18/2015,01/01,12/08/2011 Family History Medical History Relation Name Comments Hypertension Father Relation Name Status Comments Father Social History Tobacco Use Types Packs/Day Years Used Date Smoking Tobacco: Former Cigarettes Q uit: 2002 Smokeless Tobacco: Never Tobacco Cessation:Counseling Given: Not Answered Alcohol Use Standard Drinks/Week Comments Not Currently [...] Orientation Straight 08/25/2022 2: 24 PM EDT Last Filed Vital Signs Vital Sign Reading Time Taken Comments Blood Pressure 106/58 08/22/2024 1:06 PM EDT Pulse 95 08/22/2024 1:06 PM EDT Temperature 35.8 C (96.5 F) 05/26/2022 11:12 AM EDT Respiratory Rate 16 07/20/2021 12:57 PM EDT Oxygen Saturation 97% 08/22/2024 1:06 PM EDT Inhaled Oxygen Concentration - - Weight 122.5 kg (270 lb) 08/22/2024 1:06 PM EDT Height 175.3 cm (5' 9 ) 08/22/2024 1:06 PM EDT Body Mass Index 39.87 08/22/2024 1:06 PM EDT Plan of Treatment Upcoming Encounters Date Type Department Care Team (Late st Contact Info) Description 08/24/2025 1:45 PM EDT Office Visit [facility] - [address] [place] [phone] Judi Simms MD [address] [place] [address] [place] [phone] Health Maintenance Due Date Last Done Comments CT Colonography 1977 Colonoscopy 1977 Colorectal Cancer Screening 1977 FIT-DNA 1977 FIT 1977 FOBT 1977 HIV Screening 1977 Sigmoidoscopy 1977 Diabetes: Retinopathy Screening 1977 MMR Vaccines (1 of 1 - Standard series) 1978 Diabetes: Foot Exam 12/11/1987 Hepatitis C Screening 12/11/1995 DTaP/Tdap/Td Vaccines (1 - Tdap) 1996 Hepatitis B Vaccines (1 of 3 - 19+ 3-dose series) 1996 Pneumococcal Vaccine: Pediatrics (0 to 5 Years) and At-Risk Patients (6 to 49 Years) (1 of 2 - PCV) 1996 COVID-19 Vaccine (2 - season) 2024 04/05/2020 Influenza Vaccine (#1) 2024 , 11/18/2019, 11/18/2015, Additional history exists Diabetes: Urine Protein Screening 07/29/2025 07/29/2024 High Risk LDL 07/29/2025 07/29/2024, 05/16, 05/06/2022 Lipid Panel 07/29/2025 07/29/2024, 05/16, 05/06/2022 Diabetes: Hemoglobin A1C 08/22/2025 025, 08/18/2023, 06/01/2023, Additional history exists Depression Screening Completed 08/22/2024 Diabetes Screening Discontinued 08/22/2024, 0 08/18/2023, 06/01/2023, Additional history exists HIB Vaccines Aged Out No longer eligi ble based on patient's age to complete this topic HPV Vaccines Aged Out No longer eligi ble based on patient's age to complete this topic Hepatitis A Vaccines Aged Out No long er eligible based on patient's age to complete this topic IPV Vaccines Aged Out No longer eligi ble based on patient's age to complete this topic Meningococcal B Vaccine Aged Out No l onger eligible based on patient's age to complete this topic Meningococcal Vaccine Aged Out No yesi kaushik eligible based on patient's age to complete this topic Rotavirus Vaccines Aged Out No longer eligible based on patient's age to complete this topic Medical Devices Implanted Type Area Helmet Hat Brim Cutter Device Identifier Shelf Expiration Date Model / Serial / Lot Joint Knee Joint Knee Bilateral : Knee Joint Knee Joint Knee Bilateral : Knee Procedures Procedure Name Priority Date/Time Associated Diagnosis Comments POCT HGB A1C Routine 08/22/2024 1:34 PM EDT Type 2 diabetes mellitus without complication, without long-term current use of insulin (Multi-HCC) ALBUMIN, URINE, RANDOM (INCLUDING CREATININE) Routine 07/29/2024 9:12 AM EDT PSA TOTAL, SCREEN Routine 07/29/2024 9:1 2 AM EDT Screening for prostate cancer VITAMIN B12 Routine 07/29/2024 9:12 AM EDT Fatigue, unspecified type VITAMIN D 25 HYDROXY Routine 07/29/2024 9:12 AM EDT Fatigue, unspecified type TSH WITH REFLEX Routine 07/29/2024 9:12 AM EDT Fatigue, unspecified type LIPID PANEL Routine 07/29/2024 9:12 AM EDT Hyperlipidemia, unspecified hyperlipidemia type COMPREHENSIVE METABOLIC PANEL Routine 07/29/2024 9:12 AM EDT Type 2 diabetes mellitus without complication, without long-term current use of insulin (Multi-HCC) CBC W/DIFF Routine 07/29/2024 9:12 AM EDT Annual physical exam Fatigue, unspecified type from Last 3 Months Results * (ABNORMAL) POCT glycosylated hemoglobin (Hb A1C) (08/22/2024 1:34 PM EDT) POCT Hemoglobin A1C 5.9(A) <=5.7 % [facility] ([id number]) Blood Venous blood specimen / Unknown 08/22/2024 1:34 PM EDT Judi Simms MD POINT OF CARE TEST ENTER/EDIT ORDERABLES Final Result [facility] ([id number]) [address] [place] [phone], * TSH with reflex (07/29/2024 9:12 AM EDT) TSH 1.660 0.450 - 4.500 uIU/mL [facility] 1 Comment: No apparent thyroid disorder. Additional testing not indicated. In rare instances, Secondary Hypothyroidism as well as Subclinical Hypothyroidism have been reported in some patients with normal TSH values. Blood Venous blood specimen / Unknown 07/29/2024 9:12 AM EDT 07/29/2024 Narrative [facility] - 07/30/2024 8:29 AM EDT Performed at: [facility] [id number] Tumbler Plater: Andria Wilson MD, Phone: [phone] Judi Simms MD LAB BLOOD ORDERABLES Final Re sult [facility] [address] [place] [address], [facility] 1 * PSA Total, Screen (07/29/2024 9:12 AM EDT) PSA TOTAL 0.4 0.0 - 4.0 ng/mL [facility] 1 Comment: Giulia ECLIA methodology. According to the [place] [employer], Serum PSA should decrease and remain at undetectable levels after radical prostatectomy. The AUA defines biochemical recurrence as an initial PSA value 0.2 ng/mL or greater followed by a subsequent confirmatory PSA value 0.2 ng/mL or greater. Values obtained with different assay methods or kits cannot be used interchangeably. Results cannot be interpreted as absolute evidence of the presence or absence of malignant disease. Blood Venous blood specimen / Unknown 07/29/2024 9:12 AM EDT 07/29/2024 Narrative [facility] - 07/30/2024 8:29 AM EDT Performed at: [facility] [id number] Tumbler Plater: Andria Wilson MD, Phone: [phone] us Judi Simms MD LAB BLOOD ORDERABLES Final Re sult Performing Organization Address [facility] de Phone Number [facility] [address] [place] [address], [facility] 1 * Albumin, Urine, Random (Microalbumin Random, Including Creatinine) (07/29/2024 9:12 AM EDT) Creat Ur 245.7 Not Estab. mg/dL [facility] 1 Albumin Ur 12.6 Not Estab. ug/mL [facility] 1 Alb/Creat Ratio 5 0 - 29 mg/g creat [facility] 1 Comment: Normal: 0 - 29 Moderately increased: 30 - 300 Severely increased: >300 07/29/2024 9:12 AM EDT 07/29/2024 Narrative [facility] - 07/30/2024 8:29 AM EDT Performed at: [address] [place] [id number] Tumbler Plater: Andria Wilson MD, Phone: [phone] us Judi Simms MD LAB URINE ORDERABLES Final Re sult Performing Organization Address [facility] de Phone Number [facility] [address] [place] [address], [facility] 1 * (ABNORMAL) Vitamin D 25 hydroxy (07/29/2024 9:12 AM EDT) Vitamin D, 25-Hydroxy 25.8(L) 30.0 - 100.0 ng/mL [facility] 1 Comment: Vitamin D deficiency has been defined by the [place] of [employer] and an Endocrine Society practice guideline as a level of serum 25-OH vitamin D less than 20 ng/mL (1,2). The Endocrine Society went on to further define vitamin D insufficiency as a level between 21 and 29 ng/mL (2). 1. IOM ([place] of [employer]). 2010. Dietary reference intakes for calcium and D. [place]: The National Academies Press. 2. Louise MF, Fadia ALLEN, Maicol ELIZALDE, et al. Evaluation, treatment, and prevention of vitamin D deficiency: an Endocrine Society clinical practice guideline. JCEM. 2010; 96(1):1911-30. Blood Venous blood specimen / Unknown 07/29/2024 9:12 AM EDT 07/29/2024 Narrative [facility] - 07/30/2024 6:59 AM EDT Performed at: - [facility] [id number] Tumbler Plater: Andria Wilson MD, Phone: [phone] us Judi Simms MD LAB BLOOD ORDERABLES Final Re sult [facility] [address] [place] [address], [facility] 1 * (ABNORMAL) CBC and differential (07/29/2024 9:12 AM EDT) WBC 8.9 3.4 - 10.8 x10E3/uL [facility] 1 RBC 4.78 4.14 - 5.80 x10E6/uL [facility] 1 Hgb 13.3 13.0 - 17.7 g/dL [facility] 1 Hct 40.9 37.5 - 51.0 % [facility] 1 MCV 86 79 - 97 fL [facility] 1 MCH 27.8 26.6 - 33.0 pg [facility] 1 MCHC 32.5 31.5 - 35.7 g/dL [facility] 1 RDW 13.2 11.6 - 15.4 % [facility] 1 Platelets 289 150 - 450 x10E3/uL [facility] 1 Neutrophils 65 Not Estab. % [facility] 1 Lymphs 21 Not Estab. % [facility] 1 Monocytes 11 Not Estab. % [facility] 1 Eos 3 Not Estab. % [facility] 1 Basos 0 Not Estab. % [facility] 1 Neutrophils Abs 5.8 1.4 - 7.0 x10E3/uL [facility] 1 Lymphs Abs 1.8 0.7 - 3.1 x10E3/uL [facility] 1 MonocytesAbs 1.0(H) 0.1 - 0.9 x10E3/uL [facility] 1 Eos Abs 0.2 0.0 - 0.4 x10E3/uL [facility] 1 Baso Abs 0.0 0.0 - 0.2 x10E3/uL [facility] 1 Immature Granulocytes 0 Not Estab. % [facility] 1 Immature Grans Abs 0.0 0.0 - 0.1 x10E3/uL [facility] 1 Blood Venous blood specimen / Unknown 07/29/2024 9:12 AM EDT 07/29/2024 Narrative [facility] - 07/30/2024 7:59 AM EDT Performed at: [facility] [id number] Tumbler Plater: Andria Wilson MD, Phone: [phone] us Judi Simms MD LAB BLOOD ORDERABLES Final Re sult Performing Organization Address [facility] de Phone Number [facility] [address] [place] [address], [facility] 1 * (ABNORMAL) Vitamin B12 (07/29/2024 9:12 AM EDT) [facility] Vitamin B12 1,959(H) 232 - 1,245 pg/mL [facility] 1 Blood Venous blood specimen / Unknown 07/29/2024 9:12 AM EDT 07/29/2024 Narrative [facility] - 07/30/2024 8:29 AM EDT Performed at: [facility] [id number] Tumbler Plater: Andria Wilson MD, Phone: [phone] us Judi Simms MD LAB BLOOD ORDERABLES Final Re sult Performing Organization Address [facility] Co de Phone Number [facility] [address] [place] [address], [facility] 1 * (ABNORMAL) Lipid panel (07/29/2024 9:12 AM EDT) [facility] Cholesterol 163 100 - 199 mg/dL [facility] 1 Triglycerides 392(H) 0 - 149 mg/dL [facility] 1 HDL Cholesterol 26(L) >39 mg/dL [facility] 1 VLDLc Calc 63(H) 5 - 40 mg/dL [facility] 1 LDLc Calc (NIH) 74 0 - 99 mg/dL [facility] 1 Non-HDL Chol 137(H) 0 - 129 mg/dL [facility] 1 Blood Venous blood specimen / Unknown 07/29/2024 9:12 AM EDT 07/29/2024 Narrative [facility] - 07/30/2024 8:29 AM EDT Performed at: 01 - [facility] [id number] Tumbler Plater: Andria Wilson MD, Phone: [phone] us Judi Simms MD LAB BLOOD ORDERABLES Final Re sult [facility] [address] [place] [address], [facility] 1 * (ABNORMAL) Comprehensive metabolic panel (07/29/2024 9:12 AM EDT) Glucose 116(H) 70 - 99 mg/dL [facility] 1 BUN 14 6 - 24 mg/dL [facility] 1 Creat 1.18 0.76 - 1.27 mg/dL [facility] 1 eGFR 77 >59 mL/min/1.7 3 [facility] 1 BUN/Creat Ratio 12 9 - 20 [facility] 1 Sodium 140 134 - 144 mmol/L [facility] 1 Potassium 4.3 3.5 - 5.2 mmol/L [facility] 1 Chloride 104 96 - 106 mmol/L [facility] 1 Anion Gap 15.0 10.0 - 18.0 mmol/L [facility] 1 Carbon Dioxide 21 20 - 29 mmol/L [facility] 1 Calcium 9.3 8.7 - 10.2 mg/dL [facility] 1 Protein Total 6.4 6.0 - 8.5 g/dL [facility] 1 Albumin 4.4 4.1 - 5.1 g/dL [facility] 1 Globulin Total 2.0 1.5 - 4.5 g/dL [facility] 1 Bili Total 0.2 0.0 - 1.2 mg/dL [facility] 1 Alk Phosphatase 89 44 - 121 IU/L [facility] 1 AST 20 0 - 40 IU/L [facility] 1 ALT 30 0 - 44 IU/L [facility] 1 Blood Venous blood specimen / Unknown 07/29/2024 9:12 AM EDT 07/29/2024 Narrative [facility] - 07/30/2024 4:59 PM EDT Performed at: 01 - [facility] [address] [id number] Tumbler Plater: Andria Wilson MD, Phone: [phone] us Judi Simms MD LAB BLOOD ORDERABLES Final Re sult [facility] [address] [place] [address], [facility] 1 from Last 3 Months Insurance [facility] Advance Directives * Full Code (Latest Code Status on File) Date Activated Date Inactivated Comments 05/27/2021 9:33 PM 05/29/2021 6:02 PM Care Teams Box Loader Relationship Specialty Start Date End Date Judi Simms MD PCP - General 03/21/21 Judi Simms MD 03/21/21
== END 2024-10-22 14:45 | disposition home or self-care (01) ==
LOC: HO.MRI 14:44
PROVIDERS: Visit Provider Nurse Practitioner Family
DX: G43.409 Hemiplegic migraine, not intractable, without status migrainosus (principal); R47.01 Aphasia; Z87.820 Personal history of traumatic brain injury
CPT/HCPCS: 70544; 70546; 70553; A9585

== ENCOUNTER 2024-10-22 14:49 | Outpatient (REF) | payer OTHER, SELFPAY | END 2024-10-22 14:50 | disposition home or self-care (01) | LOC: HO.MRI 14:49 | PROVIDERS: PCP Family Medicine; Visit Provider Nurse Practitioner Family | DX: Z13.89 Encounter for screening for other disorder (principal) ==

== ENCOUNTER → 2024-10-22 15:05 | Outpatient (BNV) | payer OTHER, SELFPAY | PROVIDERS: Visit Provider Radiology Diagnostic Radiology | DX: G43.409 Hemiplegic migraine, not intractable, without status migrainosus (principal); R47.01 Aphasia | CPT/HCPCS: 70544; 70546; 70553 ==

== ENCOUNTER 2024-10-26 08:28 | Outpatient (REF) | payer OTHER, SELFPAY ==
--- NOTE | 2024-10-26 08:32 | EEG_ITS ---
ROOM 1ST CT REASON; HEADACHES HX TRAMATIC HEAD INJURY TECHNICAL COMMENTS PHOTIC STIMUATION: COMPLETED HYPERVENTILATION: OMITTED BEHAVIORAL STATE: STATE OF CONSIOUSNESS; AWAKE SKULL DEFECT SEDATION: NONE HANDEDNESS: UNKNOWN This is a 16 channel EEG with an EKG lead. Patient is reported awake during the tracing. Background EEG rhythm is 8-10 hertz 5-20 microvolt posteriorly and lower amplitude fast anteriorly. Photic stimulation does not produce any significant driving. Hyperventilation is not performed. Cardiac lead does not reveal any significant abnormality. No sharp wave spikes or paroxysmal tendency noted. Impression: No significant abnormality noted on this EEG. MTDD
--- OUTSIDE RECORDS SUMMARY | 2024-10-26 09:30 | XMS_ITS | Clinical Summary ---
Author Organization [facility] Address [address] [facility] [address] [place] [address] Care Team Providers Care Chair And Couch Maker Name Role Phone Judi Simms MD Primary Care Provider [phone] Judi Simms MD Unavailable [phone] Allergies Active Allergy Reactions Criticality Noted Date Comments Amitriptyline Hallucinations High 05/27/2021 Other reaction(s): hallucinations, SI, HI Amlodipine Itching 08/25/2021 Chicken Meat Extract 05/27/2021 Chlorpromazine 05/27/2021 Codeine Hallucinations,Nause a Only Medium 05/27/2021 Covid-19 (Sars-Cov-2) Vaccine, Shauna Cell Anaphylaxis High 05/27/2021 Cyclobenzaprine Shortness of breath,Itching High 05/27/2021 Other reaction(s): itchy all over itchy itchy Gabapentin Hallucinations High 05/27/2021 Other reaction(s): Hallucinating [place] 05/27/2021 Metoclopramide Itching,Hallucinatio ns Low 05/27/2021 agitation [...] Type Department Care Team Description 09/28/[address] [phone] Jenna Macario, JUAN MANUEL Fax follow-up 08/31/2024 Orders Only [address] [place] [address] Renate Alfonso MA Back pain, unspecified back location, unspecified back pain laterality, unspecified chronicity; Knee pain, unspecified chronicity, unspecified laterality 08/31/2024 Orders Only [address] [place] [address] Renate Alfonso MA Back pain, unspecified back location, unspecified back pain laterality, unspecified chronicity; Knee pain, unspecified chronicity, unspecified laterality 08/22/2024 1:00 PM EDT Office Visit [address] [place] [address] Judi Simms MD Annual physical exam (Primary [...] Description 08/24/2025 1:45 PM EDT Office Visit [facility] - [address] [place] [phone] Judi Simms MD [address] [place] [address] [place] [phone] Health Maintenance Due Date Last Done [...] this topic Medical Devices Implanted Type Area Emergency Medcl Emt Device Identifier Shelf Expiration Date Model / [...] EDT) POCT Hemoglobin A1C 5.9(A) <=5.7 % [facility] ([id number]) Blood Venous blood specimen / Unknown 08/22/2024 1:34 PM EDT Judi Simms MD POINT OF CARE TEST ENTER/EDIT ORDERABLES Final Result [facility] ([id number]) [address] [place] [id number], * TSH with reflex (07/29/2024 9:12 AM [...] - 07/30/2024 8:29 AM EDT Performed at: [facility] [id number] Channeler Outsole: Andria Wilson MD, Phone: [phone] Judi Simms MD LAB BLOOD ORDERABLES Final Re sult [facility] [address] [place] [address], [facility] 1 * PSA Total, Screen (07/29/2024 9:12 AM EDT) PSA TOTAL 0.4 0.0 - 4.0 ng/mL [facility] 1 Comment: Giulia ECLIA methodology. According to the [place] [employer], Serum PSA should decrease and [...] - 07/30/2024 8:29 AM EDT Performed at: [facility] [id number] Channeler Outsole: Andria Wilson MD, Phone: [phone] us Judi Simms MD LAB BLOOD ORDERABLES Final Re sult Performing Organization Address [facility] de Phone Number [facility] [address] [place] [address], [facility] 1 * Albumin, Urine, Random (Microalbumin [...] - 07/30/2024 8:29 AM EDT Performed at: [address] [place] [id number] Channeler Outsole: Andria Wilson MD, Phone: [phone] us Judi Simms MD LAB URINE ORDERABLES Final Re sult Performing Organization Address [facility] de Phone Number [facility] [address] [place] [address], [facility] 1 * (ABNORMAL) Vitamin D 25 hydroxy (07/29/2024 9:12 AM EDT) Vitamin D, 25-Hydroxy 25.8(L) 30.0 - 100.0 ng/mL [facility] 1 Comment: Vitamin D deficiency has been defined by the [place] of [employer] and an Endocrine Society practice guideline as a level of serum 25-OH vitamin D less than 20 ng/mL (1,2). The Endocrine Society went on to further define vitamin D insufficiency as a level between 21 and 29 ng/mL (2). 1. IOM ([place] of [employer]). 2010. Dietary reference intakes for calcium and D. [place]: The National Academies Press. 2. Louise MF, Fadia ALLEN, Maicol ELIZALDE, et al. Evaluation, treatment, and prevention of vitamin D deficiency: an Endocrine Society clinical practice guideline. JCEM. 2010; 96(6):1911-30. Blood Venous blood specimen / Unknown 07/29/2024 9:12 AM EDT 07/29/2024 Narrative [facility] - 07/30/2024 6:59 AM EDT Performed at: - [facility] [id number] Channeler Outsole: Andria Wilson MD, Phone: [phone] us Judi Simms MD LAB BLOOD ORDERABLES Final Re sult [facility] [address] [place] [address], [facility] 1 * (ABNORMAL) CBC and differential [...] - 07/30/2024 7:59 AM EDT Performed at: [facility] [id number] Channel[employer] Outsole: Andria Wilson MD, Phone: [phone] us Judi Simms MD LAB BLOOD ORDERABLES Final Re sult Performing Organization Address [facility] de Phone Number [facility] [address] [place] [address], [facility] 1 * (ABNORMAL) Vitamin B12 (07/29/2024 9:12 AM EDT) [facility] Vitamin B12 1,959(H) 232 - 1,245 pg/mL [facility] 1 Blood Venous blood specimen / Unknown 07/29/2024 9:12 AM EDT 07/29/2024 Narrative [facility] - 07/30/2024 8:29 AM EDT Performed at: [facility] [id number] Channeler Outsole: Andria Wilson MD, Phone: [phone] us Judi Simms MD LAB BLOOD ORDERABLES Final Re sult Performing Organization Address [facility] Co de Phone Number [facility] [address] [place] [address], [facility] 1 * (ABNORMAL) Lipid panel (07/29/2024 9:12 AM EDT) [facility] Cholesterol 163 100 - 199 mg/dL [facility] [...] 8:29 AM EDT Performed at: 01 - [facility] [id number] Channel[employer] Outsole: Andria Wilson MD, Phone: [phone] us Juid Simms MD LAB BLOOD ORDERABLES Final Re sult [facility] [address] [place] [address], [facility] 1 * (ABNORMAL) Comprehensive metabolic panel [...] PM EDT Performed at: 01 - [facility] [address] [id number] Channeler Outsole: Andria Wilson MD, Phone: [phone] us Judi Simms MD LAB BLOOD ORDERABLES Final Re sult [facility] [address] [place] [address], [facility] 1 from Last 3 Months Insurance [facility] Advance Directives * Full Code (Latest Code Status on File) Date Activated Date Inactivated Comments 05/27/2021 9:33 PM 05/29/2021 6:02 PM Care Teams Chair And Couch Maker Relationship Specialty Start Date End Date Judi Simms MD PCP - General 03/21/21 Judi Simms MD 03/21/21
--- OUTSIDE RECORDS SUMMARY | 2024-10-26 09:30 | XMS_ITS | Encounter Summary ---
Author Organization [facility] Address [address] [facility] [address] [place] [address] Care Team Providers Care Enrobing Machine Feeder Name Role Phone Judi Simms MD Primary Care Provider Judi Simms MD Unavailable [phone] Reason for Visit * Reason Comments Med Refill Encounter Details Date Type Department Care Team (Late st Contact Info) Description 02/08/[address] [phone] Judi Simms MD [address] [place] [phone] Mild persistent asthma without complication (Primary [...] Description 08/24/2025 1:45 PM EDT Office Visit [place] [address] [address] [facility] [address] [place] [phone] Judi Simms MD [address] [phone] documented as of this encounter Visit Diagnoses Diagnosis Mild persistent asthma without complication (Multi-HCC)- Primary Migraine with aura and without status migrainosus, not intractable documented in this encounter Care Teams Enrobing Machine Feeder Relationship Specialty Start Date End Date Judi Simms MD PCP - General 03/21/21 Judi Simms MD 03/21/21 documented as of this encounter
--- OUTSIDE RECORDS SUMMARY | 2024-10-26 09:31 | XMS_ITS | Encounter Summary ---
Author Organization [facility] Address [address] [facility] [address] [place] [address] Care Team Providers Care Enterprise Business Architect Name Role Phone Judi Simms MD Primary Care Provider [phone] Judi Simms MD Unavailable [phone] Reason for Visit * Reason Onset Date Comments Fax follow-up 09/28/2024 Encounter Details Date Type Department Care Team (Late st Contact Info) Description 09/28/2024 Telephone [facility] - [address] [address] Jenna Macario, JUAN MANUEL Fax [...] be contacted tomorrow. Requested Call back no: [phone] or [phone] Thank you. documented in this encounter Plan of Treatment Upcoming Encounters Date Type Department Care Team (Late st Contact Info) Description 08/24/2025 1:45 PM EDT Office Visit [address] [phone] Judi Simms MD [address] [place] [phone] documented as of this encounter Visit Diagnoses Not on filedocumented in this encounter Additional Health Concerns Assessment Noted Time PHQ-9 Depression Total Score: 0 08/23/19 25 1:17 PM EDT documented as of this encounter Care Teams Enterprise Business Architect Relationship Specialty Start Date End Date Judi Simms MD PCP - General 03/21/21 Judi Simms MD 03/21/21 documented as of this encounter
== END 2024-10-26 08:29 | disposition home or self-care (01) ==
LOC: HO.NEURO 08:28
PROVIDERS: Visit Provider Nurse Practitioner Family
DX: G43.409 Hemiplegic migraine, not intractable, without status migrainosus (principal); R47.01 Aphasia; Z87.820 Personal history of traumatic brain injury
CPT/HCPCS: 95816

== ENCOUNTER → 2024-10-26 08:32 | Outpatient (BNV) | payer OTHER, SELFPAY | PROVIDERS: Visit Provider Psychiatry & Neurology Neurology | DX: R51.9 Headache, unspecified (principal); Z87.820 Personal history of traumatic brain injury | CPT/HCPCS: 95816 ==

== ENCOUNTER 2024-11-01 15:25 | Outpatient (AMB) | payer OTHER, SELFPAY ==
[2024-11-01 16:12] VITALS: BP 110/60; PULSE 93; O2SAT 96; BMI 38.7
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
== END 2024-11-02 08:19 | disposition home or self-care (01) ==
LOC: HO.HSMS 15:25
PROVIDERS: Visit Provider Nurse Practitioner Family
DX: G43.E19 Chronic migraine with aura, intractable, without status migrainosus (principal); R51.9 Headache, unspecified; G43.409 Hemiplegic migraine, not intractable, without status migrainosus; R47.01 Aphasia
CPT/HCPCS: 99214